=== PATIENT | female | born 1975 ===

== ENCOUNTER 2022-04-10 07:09 | Outpatient (CLI) | payer OTHER | END 2022-04-10 07:18 | disposition home or self-care (01) | LOC: NUCLEAR 07:09 | DX: R00.0 Tachycardia, unspecified (principal) | CPT/HCPCS: 78315; 93306; A9503 ==

== ENCOUNTER → 2024-07-19 | Outpatient (CLI) | payer OTHER | END | disposition home or self-care (01) | LOC: MAMO-SONO 12:41 | DX: N64.4 Mastodynia (principal); Z12.39 Encounter for other screening for malignant neoplasm of breast ==

== ENCOUNTER 2025-08-16 14:51 | Outpatient (CLI) | payer OTHER | END 2025-08-16 14:53 | disposition home or self-care (01) | LOC: MAMO-SONO 14:51 | DX: R92.30 Dense breasts, unspecified (principal); Z12.39 Encounter for other screening for malignant neoplasm of breast; Z12.31 Encounter for screening mammogram for malignant neoplasm of breast ==